=== PATIENT | female | born 1950 | race African-American/Black ===

== ENCOUNTER 2019-06-23 11:50 | Inpatient (IN) | payer MEDICARE, BC ==
[~2019-06-23] VITALS: Ht 161.3 cm; Wt 57.4 kg
[2019-06-23] VITALS (15 sets, daily range): BP systolic 90–111; BP diastolic 47–61
[2019-06-23] MEDS ORDERED: FERR236T3 PO (12:06)
[2019-06-23 12:51] LABS: BASOPHILS % (AUTO) 0.3 % (0.0-2.0); EOSINOPHILS % (AUTO) 0.1 % (1.0-6.0); LYMPHOCYTES # (AUTO) 0.7 K/uL (1.0-4.8); MEAN CORPUSCULAR HEMOGLOBIN 29.7 pg (26.0-34.0); MEAN CORPUSCULAR HGB CONC 32.1 G/dL (31.0-37.0); MEAN CORPUSCULAR VOLUME 93 fL (80-100); MONOCYTES # (AUTO) 0.5 K/uL (0.1-1.0); MONOCYTES % (AUTO) 4.5 % (2.0-9.0); NEUTROPHILS # (AUTO) 10.4 K/uL (1.8-7.7); PLATELET COUNT (AUTO) 217 K/uL (150-450); RED BLOOD CELL COUNT(AUTO) 1.81 MIL/uL (4.00-5.20); RED CELL DISTRIBUTION WIDTH 15.7 % (11.5-14.5)
[2019-06-23 13:00] LABS: HEMOGLOBIN 5.4 g/dL (12.0-16.0)
[2019-06-23 13:01] LABS: ANION GAP 13 mmol/L (8-16); CALCIUM, TOTAL 7.8 mg/dL (8.8-10.5); CARBON DIOXIDE 23 mmol/L (22-29); CHLORIDE 104 mmol/L (98-107); CREATININE 0.48 mg/dL (0.60-1.30); GLUCOSE,RANDOM 89 mg/dL (70-110); HEMATOCRIT 16.8 % (36-46); NEUTROPHILS % (AUTO) 89.1 % (40.0-70.0); SODIUM SERUM 140 mmol/L (136-145); UREA NITROGEN, BLOOD 14 mg/dL (7-18)
[2019-06-23 13:02] LABS: GLOMERULAR FILTR. RATE CALC > 60 mL/min (>60)
[2019-06-23 13:03] LABS: PROTHROMBIN TIME 10.5 SEC (9.4-11.6)
[2019-06-23 13:07] LABS: ALANINE AMINOTRANSFERASE 16 U/L (12-78); ALBUMIN 2.9 g/dL (3.4-5.0); ALKALINE PHOSPHATASE 74 U/L (46-116); ASPARTATE AMINOTRANSFERASE 15 U/L (15-37); BILIRUBIN,TOTAL 0.4 mg/dL (0.1-1.0); TOTAL PROTEIN, SERUM 5.8 g/dL (6.4-8.2)
[2019-06-23] MEDS ORDERED: ONDANSETRON HCL 4 MG/2 ML VIAL IVP PRN (13:15)
[2019-06-23] MEDS ORDERED: ACETAMINOPHEN 325 MG TABLET PO PRN (13:15)
[2019-06-23] MEDS ORDERED: SODIUM CHLORIDE 0.9% 250 ML IV ONE ×2 (15:15→16:17)
[2019-06-23] MEDS ORDERED: SODIUM CHLORIDE 0.9% 1,000 ML ONE (20:06)
[2019-06-24] MEDS ORDERED: ONDANSETRON HCL 4 MG/2 ML VIAL IVP PRN
[2019-06-24] MEDS ORDERED: MAGNESIUM HYDROXIDE SUSPENSION 30 ML UDCUP PO PRN
[2019-06-24] MEDS ORDERED: ACETAMINOPHEN 325 MG TABLET PO PRN
[2019-06-24] MEDS ORDERED: OxyCODONE HCL/ACETAMINOPHEN 5-325 MG TABLET PO PRN ×2
[2019-06-24] MEDS ORDERED: 0.9% SODIUM CHLORIDE 10 ML SYRINGE IVP PRN
[2019-06-24] MEDS ORDERED: SODIUM CHLORIDE 0.9% 50 ML ONE (00:01)
[2019-06-24] MEDS: PANTOPRAZOLE SODIUM 80 MG in SODIUM CHLORIDE 0.9% 100 ML IV SCH ×2 (00:28→16:33)
[2019-06-24 04:00] VITALS: BP 106/63
[2019-06-24 07:07] LABS: BASOPHILS % (AUTO) 0.4 % (0.0-2.0); EOSINOPHILS % (AUTO) 0.9 % (1.0-6.0); HEMATOCRIT 22.3 % (36-46); HEMOGLOBIN 7.4 g/dL (12.0-16.0); LYMPHOCYTES # (AUTO) 1.8 K/uL (1.0-4.8); LYMPHOCYTES % (AUTO) 22.8 % (22.0-44.0); MEAN CORPUSCULAR HEMOGLOBIN 29.5 pg (26.0-34.0); MEAN CORPUSCULAR HGB CONC 33.4 G/dL (31.0-37.0); MEAN CORPUSCULAR VOLUME 89 fL (80-100); MONOCYTES # (AUTO) 0.6 K/uL (0.1-1.0); MONOCYTES % (AUTO) 7.3 % (2.0-9.0); NEUTROPHILS # (AUTO) 5.3 K/uL (1.8-7.7); NEUTROPHILS % (AUTO) 68.6 % (40.0-70.0); PLATELET COUNT (AUTO) 192 K/uL (150-450); RED BLOOD CELL COUNT(AUTO) 2.52 MIL/uL (4.00-5.20); RED CELL DISTRIBUTION WIDTH 16.2 % (11.5-14.5)
[2019-06-24 07:24] LABS: ANION GAP 11 mmol/L (8-16); CALCIUM, TOTAL 8.1 mg/dL (8.8-10.5); CARBON DIOXIDE 24 mmol/L (22-29); CHLORIDE 107 mmol/L (98-107); CREATININE 0.48 mg/dL (0.60-1.30); GLUCOSE,RANDOM 74 mg/dL (70-110); POTASSIUM 3.6 mmol/L (3.5-5.1); SODIUM SERUM 142 mmol/L (136-145); UREA NITROGEN, BLOOD 7 mg/dL (7-18)
[2019-06-24 07:28] LABS: GLOMERULAR FILTR. RATE CALC > 60 mL/min (>60)
[2019-06-24 07:48] VITALS: BP 101/55
[2019-06-24] MEDS: DOCUSATE SODIUM 100 MG CAPSULE PO SCH ×3 (08:38→21:00)
[2019-06-24 11:57] VITALS: BP 101/63
[2019-06-24 15:03] LABS: HEMATOCRIT 22.4 % (36-46); HEMOGLOBIN 7.5 g/dL (12.0-16.0)
[2019-06-24 20:17] VITALS: BP 101/58
[2019-06-24 20:17] LABS: HEMATOCRIT 21.8 % (36-46); HEMOGLOBIN 7.3 g/dL (12.0-16.0)
[2019-06-24 23:35] VITALS: BP 112/60
[2019-06-25 02:03] LABS: HEMOGLOBIN 7.1 g/dL (12.0-16.0)
[2019-06-25] MEDS: PANTOPRAZOLE SODIUM 80 MG in SODIUM CHLORIDE 0.9% 100 ML IV SCH ×2 (02:12→11:33)
[2019-06-25 05:12] VITALS: BP 104/55
[2019-06-25 07:26] VITALS: BP 90/52
[2019-06-25] MEDS: DOCUSATE SODIUM 100 MG CAPSULE PO SCH (08:48)
[2019-06-25 09:13] LABS: HEMATOCRIT 22.5 % (36-46); HEMOGLOBIN 7.6 g/dL (12.0-16.0)
[2019-06-25 09:35] LABS: ANION GAP 10 mmol/L (8-16); CALCIUM, TOTAL 8.8 mg/dL (8.8-10.5); CARBON DIOXIDE 25 mmol/L (22-29); CHLORIDE 107 mmol/L (98-107); CREATININE 0.67 mg/dL (0.60-1.30); GLUCOSE,RANDOM 74 mg/dL (70-110); POTASSIUM 3.5 mmol/L (3.5-5.1); SODIUM SERUM 142 mmol/L (136-145); UREA NITROGEN, BLOOD 4 mg/dL (7-18)
[2019-06-25 09:36] LABS: GLOMERULAR FILTR. RATE CALC > 60 mL/min (>60)
[2019-06-25 11:28] VITALS: BP 98/59
== END 2019-06-25 17:16 | disposition home or self-care (01) | DRG 379 ==
LOC: EMS 11:51 → EDBD 13:33 → 5N 13:33
PROVIDERS: ADMIT Internal Medicine; ATTEND Internal Medicine
PROC: 30233N1 Transfusion of Nonautologous Red Blood Cells into Peripheral Vein, Percutaneous Approach (ICD-10-PCS; principal; 2019-06-23)
DX: K57.93 Diverticulitis of intestine, part unspecified, without perforation or abscess with bleeding (principal); Z85.3 Personal history of malignant neoplasm of breast; D64.9 Anemia, unspecified
CPT/HCPCS: 82270; 85014; 85018; 86850; 86900; 86901; 86920; 93005; C9113; J7030; J7050; P9016